=== PATIENT | male | born 1950 | race Caucasian/White ===

== ENCOUNTER 2018-08-23 07:57 | Day surgery (SDC) | payer MEDICARE, BC ==
[2018-08-19 09:03] VITALS: BMI 28.1
[~2018-08-23 07:57] MED LIST: LACTATED RINGERS 1,000 ML IV SCH
[2018-08-23 08:23] VITALS: RESP 16; TEMP 98.1
[2018-08-23] MEDS ORDERED: PROPOFOL 10 MG/ML 20 ML VIAL IV ONE (08:48)
--- NOTE | 2018-08-23 08:58 | P.GSHP ---
History of Present Illness H&P Date: 08/23/18 Chief Complaint: Screening colonoscopy, history of colitis This 68-year-old male who presents today for screening colonoscopy. Patient has a previous history of colitis. Past Medical History Past Medical History: Hyperlipidemia, Hypertension Additional Past Medical History / Comment(s): colitis History of Any Multi-Drug Resistant Organisms: None Reported Past Surgical History: Appendectomy Additional Past Surgical History / Comment(s): COLONOSCOPY Past Anesthesia/Blood Transfusion Reactions: No Reported Reaction Smoking Status: Former smoker - Past Family History Mother Family Medical History: No Reported History Medications and Allergies Home Medications Medication Instructions Recorded Confirmed Type Aspirin 81 mg PO DAILY 06/26/15 08/19/18 History Losartan/Hydrochlorothiazide 1 each PO DAILY 06/26/15 08/23/18 History [Hyzaar 100-25 Tablet] Simvastatin [Zocor] 20 mg PO HS 06/26/15 08/23/18 History Cyclobenzaprine [Flexeril] 10 mg PO HS 08/19/18 08/23/18 History sulfaSALAzine [Azulfidine] 500 mg PO BID 08/19/18 08/23/18 History Allergies Allergy/AdvReac Type Severity Reaction Status Date / Time No Known Allergies Allergy Verified 06/26/15 07:26 Surgical - Exam Vital Signs Temp Pulse Resp BP Pulse Ox 98.1 F 82 16 155/90 93 L 08/23/18 08:19 08/23/18 08:19 08/23/18 08:19 08/23/18 08:19 08/23/18 08:19 - General well developed, well nourished, no distress - Eyes PERRL - ENT normal pinna - Neck no masses - Respiratory normal expansion - Cardiovascular Rhythm: regular - Abdomen Abdomen: soft, non tender Assessment and Plan Assessment: History of colitis. We'll perform colonoscopy.
[2018-08-23 09:25] VITALS: BP 119/73; PULSE 87
--- NOTE | 2018-09-03 11:07 | P.OP ---
Date of Procedure: 08/23/18 Preoperative Diagnosis: Diverticulitis Postoperative Diagnosis: Diverticulosis Procedure(s) Performed: Colonoscopy Anesthesia: MAC Surgeon: Juan Pierre Pathology: none sent Condition: stable Disposition: PACU Description of Procedure: The patient's placed on the endoscopy table lateral position. He received IV sedation. Digital rectal exam was performed which revealed no abnormalities. The prostate was symmetric without nodules. The flexible colonoscope was then placed patient anus passed throughout the entire colon. The ileocecal valve was visualized. The cecum, ascending and transverse colon appeared normal. In the descending and sigmoid colon there was diverticular changes. There is no evidence of any active diverticulitis. The scope was then brought back the rectum and this appeared normal. Scope was withdrawn for patient.
== END 2018-08-23 09:47 | disposition home or self-care (01) ==
LOC: ORWHC2ENDO 07:57
PROVIDERS: ATTEND Surgery
DX: K57.30 Diverticulosis of large intestine without perforation or abscess without bleeding (principal); I49.9 Cardiac arrhythmia, unspecified; E78.5 Hyperlipidemia, unspecified; I10 Essential (primary) hypertension; Z87.891 Personal history of nicotine dependence; Z79.82 Long term (current) use of aspirin; Z79.899 Other long term (current) drug therapy; Z87.19 Personal history of other diseases of the digestive system
CPT/HCPCS: 45378; J2704